=== PATIENT | male | born 1965 | race Caucasian/White ===

== ENCOUNTER → 2017-08-01 11:06 | Outpatient (CLI) | payer MEDICARE, OTHER, SELFPAY ==
--- NOTE | 2017-08-01 11:10 | XR_ITS ---
XR elbow RT 2V HISTORY: ITS.REASON: right elbow pain ORDERING PHYSICIAN: Víctor Sands MD PATIENT AGE: 52 years COMPARISON: None FINDINGS: BONY STRUCTURES: No fracture or dislocation. No lytic or blastic change. Normal mineralization. SOFT TISSUES: Unremarkable. No radio opaque foreign bodies. No displaced fat pad. JOINT SPACE: Well-preserved. No significant arthritic changes evident. IMPRESSION: Negative elbow.
== END ==
PROVIDERS: PCP Family Medicine; Visit Provider Orthopaedic Surgery
DX: M25.521 Pain in right elbow (principal)
CPT/HCPCS: 73070

== ENCOUNTER 2017-09-26 09:00 | Outpatient (RCR) | payer MEDICARE, OTHER, SELFPAY ==
--- NOTE | 2017-08-06 09:47 | HMH.OTOPEV ---
OT Inpatient Evaluation Rehab OT Outpatient Eval Start: 08/06/17 09:27 Freq: Status: Active Protocol: Document 08/06/17 09:27 RMBRENDON (Rec: 08/06/17 09:46 [id number]) Electronically Signed By Neisha Pardo OT 08/06/17 09:27 Outpatient Therapy Subjective History Subjective History Pt is a 52 year old male who reports to therapy for initial evaluation to right elbow. Pt c/o constant pain at the right elbow on the lateral side. Pt reports his pain at the right elbow started over a year ago and has gradually become worse. Pt does demonstrate with decreased AROM and strength at right elbow. Pt does have some swelling at the lateral aspect of right elbow. Pt will continue to be seen twice a week to address these deficits . Chief Complaint Pain Stiff Symptom Type Ache Throb Sharp Stabbing Shooting Symptoms Relieved By Nothing Symptoms Aggravated By Physical Activity Twisting Lifting Prior Functional Limitations None Current Functional Limitations Reaching Lifting Housework Driving Sleeping Recreation Activity Symptom Description Constant and Continuous Level of pain today (0-10) 4 Pain scale - at its best (0-10) 2 Pain scale - at its worst (0-10) 8 Shoulder/Elbow Eval Shoulder Objective Measurements Elbow Objective Measurements Elbow ROM Right full ROM elbow exam standard left decreased ROM elbow exam standard right pain with active ROM elbow exam standard right pain with passive ROM elbow exam right standard Elbow Extension Active Range of Motion ( 0-30 degrees degrees) Elbow Flexion Active Range of Motion ( 100 degrees degrees) Elbow Pronation of Forearm Range of 80 degrees Motion (degrees) Elbow Supination of Forearm Range of 60 degrees Motion (degrees) Elbow ROM Limitations Pain Elbow MMT
== END 2017-09-26 09:01 | disposition home or self-care (01) ==
LOC: OT 09:00
PROVIDERS: PCP Family Medicine; Visit Provider Orthopaedic Surgery
DX: M25.521 Pain in right elbow (principal)
CPT/HCPCS: 97014; 97035; 97110; 97140; 97166; G0283

== ENCOUNTER → 2018-03-18 13:00 | Outpatient (CLI) | payer MEDICARE, OTHER, SELFPAY ==
--- NOTE | 2018-03-18 13:01 | CI_ITS ---
Cerebrovascular Exam Indications: 780.4 Dizziness and giddiness. 435.9 Unspecified transient cerebral ischemia. IMPRESSIONS 1. The bilateral vertebral arteries are patent with normal antegrade flow. 2. Study suggests less than 20% stenosis involving the right internal carotid artery and the left internal carotid artery. Carotid duplex study. Complete study and Doppler flow study including spectral analysis, color and brown scale imaging. Height: Height: 162.6cm. Height: 64in. Weight: Weight: 59kg. Weight: 129.7lb. Body mass index: BMI: 22.3kg/m^2. Body surface area: BSA: 1.64m^2. Location: Vascular laboratory. Patient status: Outpatient. Tables: Arterial flow: + +--------+--------+ Location V sys V ed + +--------+--------+ Right CCA - proximal 107cm/s 39.3cm/s + +--------+--------+ Right CCA - distal 91.9cm/s 34.6cm/s + +--------+--------+ Right ECA 85.6cm/s -------- + +--------+--------+ Right ICA - proximal 80.9cm/s 23.6cm/s + +--------+--------+ Right ICA - mid 59.7cm/s 23.6cm/s + +--------+--------+ Right ICA - distal 38.5cm/s 16.5cm/s + +--------+--------+ Right vertebral 45.6cm/s -------- + +--------+--------+ Left CCA - proximal 72.3cm/s 22cm/s + +--------+--------+ Left CCA - distal 82.5cm/s 23.6cm/s + +--------+--------+ Left ECA 137cm/s -------- + +--------+--------+ Left ICA - proximal 40.2cm/s 14.5cm/s + +--------+--------+ Left ICA - mid 76.5cm/s 30.8cm/s + +--------+--------+ Left ICA - distal 77.9cm/s 31.4cm/s + +--------+--------+ Left vertebral 35.2cm/s -------- + +--------+--------+ Velocity ratios: + + + + + + Right, V sys Right, V ed Left, V sys Left, V ed + + + + + + Max ICA/dist CCA 0.88 0.68 0.94 1.33 + + + + + + (Report amended ) Electronically signed by: Chetan Patino [id number]
== END ==
PROVIDERS: PCP Emergency Medicine; Visit Provider Nurse Practitioner Family
DX: R42 Dizziness and giddiness (principal); G45.9 Transient cerebral ischemic attack, unspecified; Z82.3 Family history of stroke
CPT/HCPCS: 93880

== ENCOUNTER 2020-06-24 21:08 | Emergency (ER) | payer MEDICARE, OTHER, SELFPAY ==
--- NOTE | 2020-06-24 21:04 | ECG_ITS ---
APPROVED REPORT Exam: Resting ECG HR:104 bpm ECG Measurements Heart Rate 104 AXES FL 126 P 61 QRSd 94 QRS 73 QT 326 T 52 QTc 428 Conclusion Sinus tachycardia Incomplete right bundle branch block Nonspecific ST abnormality Abnormal ECG Electronically signed by : Cooper Colbert, 06/25/2020 14:59:28
[2020-06-24 21:09] VITALS: BP 169/113; PULSE 106; RESP 16; TEMP 36.6; O2SAT 97; BMI 20.5
--- NOTE | 2020-06-24 21:12 | XR_ITS ---
PROCEDURE INFORMATION: Exam: XR Chest Exam date and time: 06/24/2020 9:12 PM Age: 55 years old Clinical indication: Chest pain; Type not specified; Additional info: Cp TECHNIQUE: Imaging protocol: XR of the chest. Views: 2 views. COMPARISON: CR CXR1 CHEST-PORTABLE 01/05/2015 11:00 AM FINDINGS: Lungs: Unremarkable. No consolidation. Pleural spaces: Unremarkable. No pleural effusion. No pneumothorax. Heart/Mediastinum: Unremarkable. No cardiomegaly. Bones/joints: Unremarkable. IMPRESSION: No acute findings.
[2020-06-24 21:17] LABS: Basophils # 0.1 K/mm3 (0-0.2); Basophils % 1.3 % (0.1-2.0); Eosinophils # 0.1 K/mm3 (0.0-0.4); Eosinophils % 1.3 % (0.1-12.0); Hematocrit 50.5 % (42.0-52.0); Hemoglobin 16.9 g/dL (14.1-18.0); Lymphocytes # 3.6 K/mm3 (0.7-4.5); Lymphocytes % 37.5 % (10-50); Mean Corpuscular HGB Conc 33.4 g/dL (31.8-35.4); Mean Corpuscular Hemoglobin 30.9 pg (27.0-31.2); Mean Corpuscular Volume 92.4 fl (80-94); Mean Platelet Volume 6.7 fl (7.4-10.4); Monocytes # 0.6 K/mm3 (0.1-1.0); Monocytes % 6.2 % (1.7-9.3); Neutrophils # 5.1 K/mm3 (1.8-7.8); Neutrophils % 53.7 % (37.0-80.0); Platelet Count 257 K/mm3 (142-424); Red Blood Count 5.47 M/mm3 (4.60-6.20); Red Cell Distribution Width 12.9 % (11.5-17.5); White Blood Count 9.5 K/mm3 (4.8-10.8)
[2020-06-24 21:21] LABS: Chloride 97 mmol/L (98-107)
[2020-06-24 21:22] LABS: Potassium 3.7 mmoL/L (3.5-5.1); Sodium 137 mmol/L (136-145)
[2020-06-24 21:24] LABS: Alanine Aminotransferase 31 U/L (12-78); Alkaline Phosphatase 105 U/L (38-126); Anion Gap 13.7 mEq/L (5-15); Aspartate Amino Transferase 42 U/L (17-59); Bilirubin,Direct 0.3 mg/dl (0.0-0.4); Bilirubin,Indirect 0.3 mg/dL (0.0-0.9); Bilirubin,Total 0.6 mg/dl (0.2-1.3); Bilirubin,Unconjugated 0.2 mg/dL (0.0-1.1); Blood Urea Nitrogen 11 mg/dl (9-20); Carbon Dioxide 30 mmol/L (22.0-30.0); Creatinine Clearance Estimated 95 mL/min (50-200); Estimated Glomerular Filt Rate 118 ml/min (>60); GFR (African American) 142 ML/MIN (>60)
[2020-06-24 21:25] LABS: Calcium 9.8 mg/dl (8.4-10.2); Glucose 138 mg/dl (74-100); Total Protein,Serum 8.1 g/dl (6.3-8.2)
[2020-06-24 21:37] LABS: Troponin I < 0.01 ng/ml (0.00-0.034)
--- NOTE | 2020-06-24 22:03 | HMH.EDGENADL ---
ED Disposition Clinical Impression: Chest pain Qualifiers: Chest pain type: unspecified Qualified Code(s): R07.9 - Chest pain, unspecified Disposition: Home, Self-Care Condition on Discharge: Good Additional Instructions: Your labs and x-ray were normal. Follow up with your PCP and return with concerns. Referrals: Bre Burton APRN [Primary Care Provider] - - Critical Care Critical Care Time: No Attestation: On 06/24/20, the high probability of a clinically significant, sudden or life threatening deterioration of the following system(s) required my full and direct attention, intervention and personal management. The time I documented below is in addition to time spent performing reported procedures but includes the following listed in this critical care notation. Medical Decision Making - Donovan Inquiry Pt receiving controlled substance: No Vital Signs: 06/24/20 21:09 06/24/20 22:57 Temperature 97.8 F 97.8 F Temperature Source Oral Oral Pulse Rate 83 Pulse Rate [Right] 106 H Respiratory Rate 16 14 Blood Pressure 149/75 H Blood Pressure [Right Radial Artery] 169/113 H Blood Pressure Mean [Right Radial Artery] 131 02 Sat by Pulse Oximetry 97 Oxygen Delivery Method Room Air - Lab Data Lab Results 06/24/20 21:05: WBC 9.5, RBC 5.47, Hgb 16.9, Hct 50.5, MCV 92.4, MCH 30.9, MCHC 33.4, RDW 12.9, Plt Count 257, MPV 6.7 L, Neut % (Auto) 53.7, Lymph % (Auto) 37.5, Miller % (Auto) 6.2, Eos % (Auto) 1.3, Baso % (Auto) 1.3, Neut # (Auto) 5.1, Lymph # (Auto) 3.6, Miller # (Auto) 0.6, Eos # (Auto) 0.1, Baso # (Auto) 0.1 06/24/20 21:05: Sodium 137, Potassium 3.7, Chloride 97 L, Carbon Dioxide 30, Anion Gap 13.7, BUN 11, Creatinine 0.70, Estimated Creat Clear 95, Estimated GFR 118, Est GFR ( Amer) 142, Glucose 138 H, Calcium 9.8, Total Bilirubin 0.6, Direct Bilirubin 0.3, Conjugated Bilirubin 0.0, Indirect Bilirubin 0.3, Unconjugated Bilirubin 0.2, AST 42, ALT 31, Alkaline Phosphatase 105, Troponin I < 0.01, Total Protein 8.1, Albumin 5.0 Result diagrams: 06/24/20 21:05 06/24/20 21:05 Orders (Tests/Meds): ED MEDICATIONS Discontinued Medications Generic Name Dose Route Start Last Admin Trade Name Carolina PRN Reason Stop Dose Admin Aspirin 324 mg 06/24/20 21:13 06/24/20 21:15 Aspirin 81mg Chewable Tablet PO 06/24/20 21:14 324 mg ONCE ONE Administration Lactated Ringer's 1,000 mls @ 999 mls/hr 06/24/20 21:15 06/24/20 21:15 Lactated Ringer's 1000 Ml Bag IV 06/24/20 22:15 999 mls/hr .Q1H1M GREGORY Administration Nitroglycerin 0.4 mg 06/24/20 21:13 06/24/20 22:42 Nitroglycerin 0.4mg Sl Tablet SL 07/24/20 21:12 0.4 mg Q5MINP PRN Administration Chest Pain ORDERS Category Date Time Status Chest XR 2 view (NOT portable) [XR chest 2V] Stat Exams 06/24/20 21:12 Taken Medical Decision Narrative: The patient is a 55 year old male who presnets with chest pain. On arrival he is awake, alert, stable. He is hypertensive. Chest pain free. EKG without ischemic changes, shows sinus tachycardia but otherwise intervals WNL. Labs including CBC, BMP, troponin are unremarkable. CXR unremarkable. Given nitro and aspirin. Patient requesting discharge. At this point i do think this is reasonable - low suspicion for ACS, PE, dissection, PTX or any other acute life threatening pathology. General Adult HPI - General Chief complaint: Chest Pain Stated complaint: cp Time Seen by Provider: 06/24/20 21:20 Mode of Arrival: Ambulatory Limitations: No Limitations Description of Symptoms (Recalled from ER Triage Doc. by RN): pt c/o chest pain that started a hour ago - History of Present Illness HPI narrative: The patient is a 55 year old male with a history of seizures and hypertension who presents with chest pain. This started an hour ago. He says he's had this pain on and off for a year but his job made him come in today. His pain has resolved. Denies any shortness of breath, nause
[2020-06-24 22:57] VITALS: BP 149/75; PULSE 83; RESP 14; TEMP 36.6; O2SAT 97
[2020-08-02 12:54] LABS: POC Glucose,Bedside 87 (70-110)
== END 2020-06-24 22:59 | disposition home or self-care (01) ==
PROVIDERS: Emergency Provider Emergency Medicine; PCP Nurse Practitioner
DX: R07.9 Chest pain, unspecified (principal); I10 Essential (primary) hypertension; Z87.891 Personal history of nicotine dependence; Z79.899 Other long term (current) drug therapy
CPT/HCPCS: 71046; 80048; 80076; 82962; 84484; 85025; 93005; 96365; 99282

== ENCOUNTER 2020-08-08 22:12 | Emergency (ER) | payer MEDICARE, OTHER, SELFPAY ==
[2020-08-08 22:28] VITALS: BP 149/102; RESP 16; TEMP 36.9; O2SAT 97
[2020-08-08 22:56] LABS: Basophils # 0.1 K/mm3 (0-0.2); Basophils % 0.9 % (0.1-2.0); Eosinophils # 0.1 K/mm3 (0.0-0.4); Eosinophils % 1.7 % (0.1-12.0); Hematocrit 46.5 % (42.0-52.0); Lymphocytes # 1.7 K/mm3 (0.7-4.5); Lymphocytes % 30.4 % (10-50); Mean Corpuscular HGB Conc 34.3 g/dL (31.8-35.4); Mean Corpuscular Hemoglobin 31.1 pg (27.0-31.2); Mean Corpuscular Volume 90.4 fl (80-94); Monocytes # 0.5 K/mm3 (0.1-1.0); Monocytes % 9.4 % (1.7-9.3); Neutrophils # 3.1 K/mm3 (1.8-7.8); Neutrophils % 57.6 % (37.0-80.0); Platelet Count 223 K/mm3 (142-424); Red Blood Count 5.15 M/mm3 (4.60-6.20); White Blood Count 5.5 K/mm3 (4.8-10.8)
--- NOTE | 2020-08-08 22:59 | HMH.EDSKAF ---
ED Disposition Clinical Impression: Angioedema due to angiotensin converting enzyme inhibitor (SELENE-I) Disposition: Home, Self-Care Condition on Discharge: Good Instructions: DI for Skin Abscess Referrals: Lucy Curiel APRN [Primary Care Provider] - - Critical Care Critical Care Time: No Attestation: On 08/08/20, the high probability of a clinically significant, sudden or life threatening deterioration of the following system(s) required my full and direct attention, intervention and personal management. The time I documented below is in addition to time spent performing reported procedures but includes the following listed in this critical care notation. Medical Decision Making - Medical Records Medical records reviewed: Yes: I reviewed the patient's medical records. - Donovan Inquiry Pt receiving controlled substance: No Vital Signs: 08/08/20 22:28 Temperature 98.4 F Temperature Source Oral Respiratory Rate 16 Blood Pressure [Right Arm] 149/102 H Blood Pressure Mean [Right Arm] 117 Blood Pressure Source [Right Arm] Automatic Cuff Blood Pressure Position [Right Arm] Sitting 02 Sat by Pulse Oximetry 97 Oxygen Delivery Method Room Air - Lab Data Lab results reviewed: Yes: I reviewed the patient's lab results. Lab Results 08/08/20 22:45: WBC 5.5, RBC 5.15, Hgb 16.0, Hct 46.5, MCV 90.4, MCH 31.1, MCHC 34.3, RDW 13.0, Plt Count 223, MPV 7.0 L, Neut % (Auto) 57.6, Lymph % (Auto) 30.4, Russell % (Auto) 9.4 H, Eos % (Auto) 1.7, Baso % (Auto) 0.9, Neut # (Auto) 3.1, Lymph # (Auto) 1.7, Russell # (Auto) 0.5, Eos # (Auto) 0.1, Baso # (Auto) 0.1 08/08/20 22:45: Sodium 134 L, Potassium 3.5, Chloride 96 L, Carbon Dioxide 30, Anion Gap 11.5, BUN 18, Creatinine 0.80, Estimated Creat Clear 88, Estimated GFR 101, Est GFR ( Amer) 122, Glucose 130 H, Calcium 9.8, Total Bilirubin 1.1, AST 38, ALT 28, Alkaline Phosphatase 127 H, Total Protein 7.9, Albumin 4.9, Globulin 3.0, Albumin/Globulin Ratio 1.6 Result diagrams: 08/08/20 22:45 08/08/20 22:45 Orders (Tests/Meds): ED MEDICATIONS Generic Name Dose Route Start Last Admin Trade Name aCrolina PRN Reason Stop Dose Admin Sodium Chloride 8 ml 08/08/20 22:49 Sodium Chloride 0.9% 10ml Vial IV 09/07/20 22:48 NEEDED PRN dilute pepcid Discontinued Medications Generic Name Dose Route Start Last Admin Trade Name Carolina PRN Reason Stop Dose Admin Dexamethasone Sodium Phosphate 8 mg 08/08/20 22:49 08/08/20 23:02 Dexamethasone 4mg/Ml 5ml Mdv IV 08/08/20 22:50 8 mg ONCE ONE Administration Diphenhydramine HCl 50 mg 08/08/20 22:49 08/08/20 23:02 Diphenhydramine 50mg/Ml Vial IV 08/08/20 22:50 50 mg ONCE ONE Administration Famotidine 20 mg 08/08/20 22:49 08/08/20 23:02 Famotidine 20mg/2ml Vial IV 08/08/20 22:50 20 mg ONCE ONE Administration ORDERS Category Date Time Status Histamine, Plasma Stat Lab 08/08/20 22:45 Received Medical Decision Narrative: Edema confined to upper lip. No airway involvement. No wheezing or stridor. Will DC patient's angiotensin-converting enzyme inhibitor. Will have follow-up at first like with PCP for other blood pressure medication consideration. Skin/Abscess/FB HPI - General Chief complaint: Skin/Abscess/Foreign Body Stated complaint: swollen lip Time Seen by Provider: 08/08/20 22:55 Mode of Arrival: Ambulatory Source of Information: Patient Limitations: No Limitations Description of Symptoms (Recalled from ER Triage Doc. by RN): noticed approximate 30 minutes ago top lip swelling and stinging - History of Present Illness HPI narrative: This is a 55-year-old male presents with upper lip swelling which began approximately 1 hour prior to arrival. Patient denies any trauma or injury to the upper lip. He does endorse angiotensin-converting enzyme use for his blood pressure but has been on it for many years. He is a new foods. He denies any seafood ingestion.
[2020-08-08 23:00] VITALS: BP 152/74; PULSE 85; RESP 18; O2SAT 98
[2020-08-08 23:04] LABS: Alanine Aminotransferase 28 U/L (12-78); Albumin Level 4.9 g/dl (3.5-5.0); Albumin/Globulin Ratio 1.6 (1.1-1.8); Alkaline Phosphatase 127 U/L (38-126); Anion Gap 11.5 mEq/L (5-15); Aspartate Amino Transferase 38 U/L (17-59); Bilirubin,Total 1.1 mg/dl (0.2-1.3); Blood Urea Nitrogen 18 mg/dl (9-20); Calcium 9.8 mg/dl (8.4-10.2); Carbon Dioxide 30 mmol/L (22.0-30.0); Chloride 96 mmol/L (98-107); Creatinine Clearance Estimated 88 mL/min (50-200); Estimated Glomerular Filt Rate 101 ml/min (>60); GFR (African American) 122 ML/MIN (>60); Glucose 130 mg/dl (74-100); Potassium 3.5 mmoL/L (3.5-5.1); Sodium 134 mmol/L (136-145); Total Protein,Serum 7.9 g/dl (6.3-8.2)
[2020-08-08 23:30] VITALS: BP 148/74; PULSE 81; RESP 18; O2SAT 98
[2020-08-09 00:04] VITALS: BP 145/98; PULSE 89; RESP 16; TEMP 36.8; O2SAT 98
[2020-08-11 15:18] LABS: Histamine, Plasma 0.17 ng/mL (<1.00)
== END 2020-08-09 00:06 | disposition home or self-care (01) ==
PROVIDERS: Emergency Provider Emergency Medicine; PCP Nurse Practitioner Family
DX: T78.3XXA Angioneurotic edema, initial encounter (principal); I10 Essential (primary) hypertension; Z87.891 Personal history of nicotine dependence
CPT/HCPCS: 80053; 83088; 85025; 96374; 96375; 99282

== ENCOUNTER → 2020-10-18 07:52 | Outpatient (CLI) | payer MEDICARE, OTHER, SELFPAY ==
--- NOTE | 2020-10-18 07:54 | CA_ITS ---
APPROVED REPORT Exam: Pharmacologic Technologist: Adri Carpenter Ht: 5 ft 4 in Wt: 114 lbs BSA: 1.54 m2 HR: 64 bpm BP: 144/96 mmHg Medical History Medications: Metoprolol,,,,, HCTZ,,,,, MeLOXICAM,,,,, Lisinopri/HCTZ,,,,, SucCINATE,,,,, Stress Test Details Test: LEXISCAN HR Resting HR: 76 bpm Max Heart Rate (APMHR): 166.239773 bpm Max HR Achieved: 152 bpm Target HR (85% APMHR): 141.910571 bpm % of APMHR: 91.57 Recovery HR: 96 bpm BP Resting BP: 144.0/90.0 mmHg Max BP: 163.0/90.0 mmHg Recovery BP: 163.0/90.0 mmHg ECG Resting ECG: Normal sinus rhythm Clinical Reason for Termination: Completed Protocol Exercise duration: 04:03 min Highest Stage Achieved: Stress ECG Conclusion Non-diagnostic lexiscan stress test. Patient received the infusion per protocol. He developed chest pain with quick rise in heart rate to 150 bpm within the first 90 seconds that gradually improved during stress and recovery. No appreciable EKG changes noted. No arrhythmias noted. See the nuclear report for further information. Test Summary REST 06:10 . . 76 . 144/ 90 . . Stage 1 01:00 . . 129 . . . . Stage 2 01:00 . . 133 . . . . Stage 3 01:00 . . 133 . . . . Stage 4 01:00 . . 115 . . . . Stage 4 01:03 . . 107 . . . Stop exercise at 04:03 RECOVERY 01:00 . . 109 . 151/ 92 . . RECOVERY 02:00 . . 93 . 151/ 92 . . RECOVERY 03:00 . . 104 . 148/ 93 . . RECOVERY 04:00 . . 95 . 148/ 93 . . RECOVERY 05:00 . . 103 . 163/ 90 . . RECOVERY 06:00 . . 0 . 163/ 90 . . RECOVERY 07:00 . . 0 . 163/ 90 . . RECOVERY 08:00 . . 0 . 163/ 90 . . RECOVERY 09:00 . . 0 . 163/ 90 . . RECOVERY 09:17 . . 0 . 163/ 90 . . Electronically signed by : Salinas Wolf MD 10/18/2020 19:23:43
--- NOTE | 2020-10-18 07:54 | NM_ITS ---
APPROVED REPORT Exam: Nuclear Stress Test Indication: Chest pain, SOB, HTN, Family history Patient Location: Outpatient Stress Tech: Adri Carpenter [place] Tech:Cassie Knott, ARRT, RT (R)(N) Ht: 5 ft 4 in Wt: 122 lbs HR: 64 bpm BP: 144/90 mmHg BSA: 1.59 m2 BMI: 20.9 History: Chest pain, SOB, HTN, Family history Procedure: Patient received a 0.4 mg of intravenous Lexiscan, resting heart rate 64 bpm, resting blood pressure 144/90 mmHg, with Lexiscan maximum heart rate achived was 122 bpm which is Less than 85 % of the maximum predicted heart rate and blood pressure was 180/102 mmHg. Electrocardiogram Resting electrocardiogram showed sinus rhythm, with Lexiscan there is less than 1.[address] segment depression noted from the baseline EKG. The EKG portion of the Lexiscan is nondiagnostic. Cardiac Stress and Resting SPECT Images: Cardiac Stress and Resting SPECT images were obtained using technetium 99m Myoview 29.6 mCi stress and 9.73 mCi at rest. Gated SPECT for analysis of segmental wall motion and calculation of the ejection fraction also done. Cardiac stress and resting SPECT images show uniform myocardial activity without segmental perfusion abnormality, computer derived ejection fraction is 52% with no regional wall motion abnormality, right ventricle is normal size and contractility. Conclusion: 1. The EKG portion of the Lexiscan is nondiagnostic. 2. No scintigraphic evidence of reversible ischemia seen, computer derived ejection fraction is 52% with no regional wall motion abnormality, right ventricle is normal size and contractility. 3. Normal Lexiscan Myoview study. Electronically signed by : Salinas Wolf MD 10/18/2020 19:42:52
--- NOTE | 2020-10-18 07:54 | CA_ITS ---
APPROVED REPORT EXAM: Comprehensive 2D, Doppler, and color-flow Echocardiogram Slitter And Rewinder: Alexandria Lou RVT Ht: 5 ft 4 in Wt: 114lbs BSA: 1.54 BP: 150/101 mmHg Indications: CP,SOA,EX SMOKER,HTN,HX TIA 2D Dimensions LVOT 2.10 cm (M/F) 1.5-2.5 LA Volume 20.80 mL LA Volume Index 13.50 mL/m2 (M/F) 16-34 M-Mode Dimensions RVDd 1.81 cm (0.9-2.6) LA Diam 2.61 cm (1.9-4.0) LVDd 5.30 cm (3.5-5.7) Ao Diam 2.77 cm (2.0-3.7) LVDs 3.32 cm (3.5-5.7) IVSd 0.70 cm (0.6-1.1) PWd 0.44 cm (0.6-1.1) EF (Teich) 66.90% FS 37.40% EDV (Teich) 135.30 mL TAPSE 2.44 (<1.7) ESV (Teich) 44.80 mL LV Diastology E Decel Time 153.00 (160-240 msec) E/A Ratio 1.2 MED E' 8.40 (< 7 cm/sec) E'/MED E' Ratio 13.62 (>14) LAT E' 15.30 (<10 cm/sec) E/LAT E' Ratio 7.48 (>14) Aortic Valve AO Peak GR. 5.40 mmHg Mitral Valve MV E Max Darwin. 114.00 (40-130 cm/s) MV A Velocity 95.00 (40-130 cm/s) E/A Ratio 1.21 MV Decel. Time 153.00 (160-240 ms) MV PHT 45.00 ms Pulmonary Valve PV Peak Velocity 100.00 (50-150 cm/s) Left Ventricle Left atrium normal size, left ventricle is normal size, there is no concentric left ventricle hypertrophy, visually estimated ejection fraction 55% with no regional wall motion abnormality, diastolic parameters are within normal range. Right Ventricle Right atrium and right ventricle are normal size and contractility. Aortic Valve Aortic valve is minimally thickened and fibrosed. There is no aortic stenosis or aortic insufficiency. Mitral Valve Mitral valve grossly normal, there is trace mitral regurgitation. Tricuspid Valve Tricuspid grossly normal, there is trace tricuspid regurgitation, tricuspid regurgitation jet velocity is inadequate for calculation of the right ventricular systolic pressure. Pulmonic Valve Pulmonic valve is poorly visualized. Great Vessels Aortic root is normal size. Pericardium No significant pericardial effusion noted. Conclusion 1. Normal left ventricular size, preserved left ventricular systolic function, visually estimated ejection fraction 55% with no regional wall motion abnormality, diastolic parameters are within normal range. 2. Trace mitral and tricuspid regurgitation. 3. No significant pericardial effusion noted. Electronically signed by : Salinas Wolf MD 10/19/2020 06:58:28
--- NOTE | 2020-10-18 09:23 | HMH.ITSHM ---
Current Home Medications as stated by this patient Star Sol or financial service representative. []OMEPRAZOLE METOPROLOL MELOXICAM LISINOPRIL HCTZ
== END ==
PROVIDERS: PCP Nurse Practitioner Family; Visit Provider Internal Medicine Cardiovascular Disease
DX: G45.9 Transient cerebral ischemic attack, unspecified (principal); I10 Essential (primary) hypertension; R06.00 Dyspnea, unspecified; R07.9 Chest pain, unspecified; Z87.891 Personal history of nicotine dependence
CPT/HCPCS: 78452; 93017; 93306; A9502; J2785

== ENCOUNTER 2020-11-05 08:44 | Day surgery (SDC) | payer MEDICARE, OTHER, SELFPAY ==
[2020-11-05] VITALS (12 sets, daily range): BP systolic 109–178; BP diastolic 66–111; PULSE 60–94; RESP 18; O2SAT 18–99; BMI 19.5
--- NOTE | 2020-11-05 07:25 | IR_ITS ---
APPROVED REPORT Patient Location: Outpatient Facility Examiner: PJ Senior RT (R) PROCEDURES Left heart catheterization Left ventriculogram Selective coronary angiogram INDICATION Crescendo angina Informed consent was obtained prior to the procedure. COMPLICATIONS NONE Estimated Blood Loss: LESS THAN 10 ML TECHNIQUE One percent lidocaine used to anesthetize the right anterior aspect of the wrist. The right radial artery was accessed via the Seldinger technique. A 6 Amharic sheath was placed in the right radial artery. 2.5 mg of verapamil, 800 mcg of nitroglycerin, 1mg Lidocaine and 5000 U Heparin were given through the arterial sheath. The trap catheter was also used to perform left heart catheterization, left ventriculogram and selective coronary angiogram. At the end of the procedure the sheath was removed good hemostasis was achieved using Traclet band, patient was transferred to the postop holding area in stable condition. ANGIOGRAPHIC RESULTS The left main artery Normal The left anterior descending artery Has proximal 10% stenosis with mid vessel 20 to 30% stenosis The circumflex artery Nondominant normal The right coronary artery Large dominant normal The MATTHEWS ventriculogram reveals Normal 65% The left ventricular end-diastolic pressure 15 mmHg IMPRESSION Mild nonflow limiting coronary disease Normal ejection fraction Borderline elevated LVEDP PLAN 1. Medical management Electronically signed by : Abhijit Bean MD 11/05/2020 10:41:43
[2020-11-05 09:33] LABS: Coronavirus 19, PCR Not Detected (NotDetected); Influenza A, PCR Not Detected (NotDetected); Influenza B, PCR Not Detected (NotDetected)
[2020-11-05 09:34] LABS: Basophils % 0.7 % (0.1-2.0); Eosinophils # 0.1 K/mm3 (0.0-0.4); Eosinophils % 1.5 % (0.1-12.0); Hematocrit 50.9 % (42.0-52.0); Hemoglobin 16.8 g/dL (14.1-18.0); Lymphocytes # 1.2 K/mm3 (0.7-4.5); Lymphocytes % 20.1 % (10-50); Mean Corpuscular Hemoglobin 31.6 pg (27.0-31.2); Mean Corpuscular Volume 95.9 fl (80-94); Monocytes # 0.4 K/mm3 (0.1-1.0); Monocytes % 6.8 % (1.7-9.3); Neutrophils # 4.1 K/mm3 (1.8-7.8); Neutrophils % 70.9 % (37.0-80.0); Platelet Count 237 K/mm3 (142-424); Red Blood Count 5.31 M/mm3 (4.60-6.20); Red Cell Distribution Width 12.5 % (11.5-17.5); White Blood Count 5.7 K/mm3 (4.8-10.8)
[2020-11-05 09:43] LABS: Chloride 105 mmol/L (98-107); Sodium 141 mmol/L (136-145)
[2020-11-05 09:44] LABS: Potassium 4.7 mmoL/L (3.5-5.1)
[2020-11-05 09:46] LABS: Anion Gap 11.7 mEq/L (5-15); Blood Urea Nitrogen 10 mg/dl (9-20); Carbon Dioxide 29 mmol/L (22.0-30.0); Creatinine Clearance Estimated 124 mL/min (50-200); Estimated Glomerular Filt Rate 173 ml/min (>60); GFR (African American) 210 ML/MIN (>60)
[2020-11-05 09:47] LABS: Calcium 9.4 mg/dl (8.4-10.2); Glucose 123 mg/dl (74-100)
--- NOTE | 2020-11-05 16:42 | SUR.PHASEII ---
patient waiting on ride since 1400
== END 2020-11-05 13:34 | disposition home or self-care (01) ==
LOC: CATHLAB 08:46
PROVIDERS: PCP Nurse Practitioner Family; Visit Provider Internal Medicine
DX: G45.9 Transient cerebral ischemic attack, unspecified (principal); I10 Essential (primary) hypertension; R94.39 Abnormal result of other cardiovascular function study; Z87.891 Personal history of nicotine dependence; I25.110 Atherosclerotic heart disease of native coronary artery with unstable angina pectoris; Z79.899 Other long term (current) drug therapy; Z20.822 Contact with and (suspected) exposure to COVID-19
CPT/HCPCS: 36415; 80048; 85025; 93458; 99152; C1725; C1769; C9803; J1644; Q9967; U0003; U0005

== ENCOUNTER → 2021-03-14 10:29 | Outpatient (CLI) | payer MEDICARE, OTHER, SELFPAY | PROVIDERS: Visit Provider Nurse Practitioner | DX: Z20.822 Contact with and (suspected) exposure to COVID-19 (principal) | CPT/HCPCS: C9803; U0003; U0005 ==